=== PATIENT | male | born 1985 | race Two or more races ===

== ENCOUNTER 2020-03-11 23:34 | Emergency (ER) | payer OTHER ==
[~2020-03-11] VITALS: Ht 175.3 cm; Wt 92.5 kg
[2020-03-11 23:41] VITALS: BP 146/93
== END 2020-03-12 00:15 | disposition left against medical advice (07) ==
LOC: ER 23:35
DX: R07.89 Other chest pain (principal); Z53.21 Procedure and treatment not carried out due to patient leaving prior to being seen by health care provider
CPT/HCPCS: 93005